=== PATIENT | male | born 1995 | race Caucasian/White ===

== ENCOUNTER 2017-04-13 16:23 | Emergency (ER) | payer SELFPAY ==
[2017-04-13 16:36] VITALS: BP 115/69
--- NOTE | 2017-04-13 18:20 | UC ---
Laceration HPI - HPI Summary HPI Summary: The patient comes in today for: 1. Right thumb laceration: Onset: 3 hours ago. Palliative/provocative: Pressure makes it worse. Quality: Sting. 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 He nicked the flexor surface of the DIP of the thumb on the right hand. He rinsed it, and then put alcohol on it. He went to [place] and was told to come here. Last tetanus: 2007 * - History Of Current Complaint Chief Complaint: UCLaceration Stated Complaint: FINGER LACERATION-BANDSAW INJURY Time Seen by Provider: 04/13/17 18:05 - Allergies/Home Medications Allergies/Adverse Reactions: Allergies Allergy/AdvReac Type Severity Reaction Status Date / Time No Known Allergies Allergy Verified 04/13/17 18:25 PMH/Surg Hx/FS Hx/Imm Hx Previously Healthy: Yes - Surgical History Surgical History: None - Family History Known Family History: Positive: Hypertension, Diabetes - Social History Occupation: Employed Full-time Alcohol Use: None Substance Use Type: None Smoking Status (MU): Never Smoked Tobacco Review of Systems Constitutional: Negative Skin: Rash Eyes: Negative ENT: Negative Respiratory: Negative Cardiovascular: Negative Gastrointestinal: Negative Genitourinary: Negative Motor: Negative All Other Systems Reviewed And Are Negative: Yes Physical Exam Triage Information Reviewed: Yes Appearance: Well-Appearing, No Pain Distress, Well-Nourished Vital Signs: Initial Vital Signs Temp 97.8 F 04/13/17 16:33 Pulse 68 04/13/17 16:33 Resp 18 04/13/17 16:33 BP 115/69 04/13/17 16:33 Pulse Ox 100 04/13/17 16:33 Vital Signs Reviewed: Yes Eyes: Positive: Conjunctiva Clear. Negative: Discharge ENT: Positive: Hearing grossly normal. Negative: Pharyngeal erythema, Nasal congestion, Nasal drainage, TM bulging, TM dull, TM red, Tonsillar swelling, Tonsillar exudate Dental: Negative: Gross Decay/Caries @, Dental Fracture @ Neck: Positive: Supple, Nontender, No Lymphadenopathy. Negative: Nuchal Rigidity Respiratory: Positive: Chest non-tender, Lungs clear, No respiratory distress, No accessory muscle use. Negative: Crackles, Rhonchi Cardiovascular: Positive: RRR, No Murmur Abdomen Description: Positive: Nontender, No Organomegaly, Soft. Negative: Distended, Guarding Musculoskeletal: Positive: Strength Intact, ROM Intact Neurological: Positive: Alert, Muscle Tone Normal Psychological: Positive: Age Appropriate Behavior, Consolable Skin: Positive: Other - He has a laceration on the dorsal aspect of his DIP joint of his right thumb. Laceration Repair - Laceration Repair 1 Description: Irregular Laceration Size After Repair: Length (cm) - 1.5 cm, Width (mm) - 3, Depth (mm) - 3 Modified For Repair: Yes - Ragged edges trimmed. Anesthesia Used: 2.0% Lido Cleansing Completed Via Routine Prep: Yes Irrigation With Pressure Irrigation Device: Yes Closure Material: Sutures Closure Method: Single Layer Suture Of: Skin Suture Type: Nylon - Five 4-0 nylon. Laceration Course/Dx - Course/Dx Course Of Treatment: Laceration repaired with sutures. - Differential Dx - Laceration/Wound Provider Diagnoses: Laceration, dorsum of the right thumb. Discharge - Discharge Plan Condition: Stable Disposition: HOME Patient Education Materials: Laceration (ED), Care For Your Stitches (ED) Referrals: Zina SANTIAGO,Aiden Castillo [Primary Care Provider] - 2 Weeks (See your primary care provider or us or the [facility] in 12-14 days to have the sutures removed. ) Additional Instructions: Wound care: Inspect the wound site daily. Gently clean with mild soap such as Dove, or hydrogen peroxide with a Q-tip. Watch for increased redness, drainage, tenderness, or swelling. If this occurs, please be seen again by your primary care provider or us
[2017-04-13] MEDS ORDERED: Tetan/Diph/Pertus SYR(Tdap)* 0.5 ML SYR(BOOSTRIX) use SYR IM ONE (18:22)
[2017-04-13] MEDS ORDERED: Lidocaine 2% PF * 5 ML VIAL INJ ONE (18:32)
== END 2017-04-13 19:42 | disposition home or self-care (01) ==
LOC: UCEAST 16:23
DX: S61.011A Laceration without foreign body of right thumb without damage to nail, initial encounter (principal); W31.2XXA Contact with powered woodworking and forming machines, initial encounter; Y92.214 College as the place of occurrence of the external cause
CPT/HCPCS: 12001; 90471; 90715; 99201; G0463